=== PATIENT | female | born 1955 | race Two or more races ===

== ENCOUNTER 2019-05-25 06:54 | Emergency (ER) | payer BC, MEDICARE ==
[2019-05-25] MEDS ORDERED: RINGERS SOLUTION,LACTATED 1,000 ML IV ONE (08:52)
--- NOTE | 2019-05-25 09:03 | ER Document Report ---
ED General - General Chief Complaint: High Blood Sugar Stated Complaint: BLOOD SUGAR PROBLEM Time Seen by Provider: 05/25/19 08:40 TRAVEL OUTSIDE OF THE [place] IN LAST 30 DAYS: No - HPI Notes: 63-year-old female known history of diabetes presents with elevated blood glucose. Patient states that 2 days ago she lost all of her diabetes medications and equipment including her Accu-Chek. She feels that her blood sugar is elevated, has had polyuria and polydipsia. No fever, chills or sweats. Denies any current abdominal pain. Moderate intensity, gradual onset, nonradiating. No other modifying factors, no other associated symptoms, no other provocative or palliative factors. - Related Data Allergies/Adverse Reactions: Penicillins Allergy (Verified 07/05/12 20:34) Past Medical History - Social History Smoking Status: Never Smoker Chew tobacco use (# tins/day): No Frequency of alcohol use: Rare Drug Abuse: None Lives with: Spouse/Significant other Family History: Reviewed & Not Pertinent Patient has suicidal ideation: No Patient has homicidal ideation: No - Medical History Notes: Includes type 2 diabetes Neurological Medical History: Reports: Hx Migraine Endocrine Medical History: Reports: Hx Diabetes Mellitus Type 1, Hx Diabetes Mellitus Type 2 GI Medical History: Reports: Hx Irritable Bowel Musculoskeletal Medical History: Reports Hx Fibromyalgia Psychiatric Medical History: Reports: Hx Depression Past Surgical History: Reports: Hx Hysterectomy, Hx Orthopedic Surgery - upper back surgery - Immunizations Immunizations up to date: Yes Hx Diphtheria, Pertussis, Tetanus Vaccination: Yes Review of Systems - Review of Systems Notes: Review of systems as in the history of present illness, otherwise negative x 10 systems. Physical Exam - Vital signs Vitals: Temp Pulse Resp BP Pulse Ox 97.2 F 76 17 137/66 H 96 05/25/19 07:09 05/25/19 07:09 05/25/19 07:09 05/25/19 07:09 05/25/19 07:09 - Notes Notes: General: Well developed . Dry mucosa HEENT: Normocephalic, atraumatic. Pupils equal round reactive to light. No JVD. Chest: No trauma. Respiratory: Good air exchange, normal excursion. Cardiac: Regular rhythm. No murmurs or gallops. Abdomen: Soft, benign. Nondistended. Nontender. Back: No asymmetry or gross abnormality. Motor: Grossly normal power and tone. Neurologic: Alert, nonfocal. Cranial nerves II-12 are intact. Sensation intact. Vascular: Well perfused. Normal peripheral pulses. Skin: No petechiae or purpura. Course - Re-evaluation Re-evalutation: 05/25/19 09:03 [age]-year-old female presents with evidence of clinical dehydration, likely hyperglycemia. Due to medication noncompliance due to loss. Consider underlying DKA, doubt superimposed infection or cardiac etiology. We will proceed with IV fluids, laboratory evaluation, screen for DKA, reassess. 05/25/19 12:08 Patient received IV fluids. Labs were reviewed, moderate hyperglycemia noted, normal bicarb. CBC unremarkable. Patient feels somewhat better, glucose is come down spontaneously to the low 200s. I spoke with the pharmacy and patient apparently is able to go to her pharmacy and indicated to them that she lost it, they are able to call and emergency override in a prescription. They have been given this information, will return if worsening. - Vital Signs Vital signs: Temp Pulse Resp BP Pulse Ox 97.2 F 76 17 137/66 H 96 05/25/19 07:09 05/25/19 07:09 05/25/19 07:09 05/25/19 07:09 05/25/19 07:09 - Laboratory Result Diagrams: 05/25/19 10:10 05/25/19 10:10 Laboratory results interpreted by me: 05/25/19 05/25/19 05/25/19 07:16 10:10 10:10 MCV 98 H Glucose 290 H POC Glucose 307 H Discharge - Discharge Clinical Impression: Hyperglycemia Condition: Good Disposition: HOME, SELF-CARE Instructions: Hyperglycemia ([facility]) Additional Instructions: See your primary care doctor in follow-up over the next 24 to 48 hours
[2019-05-25 10:22] LABS: ABSOLUTE EOSINOPHILS # (AUTO) 0.1 10^3/uL (0.0-0.6); ABSOLUTE LYMPHOCYTES (AUTO) 3.2 10^3/uL (0.5-4.7); ABSOLUTE MONOCYTES (AUTO) 0.5 10^3/uL (0.1-1.4); ABSOLUTE NEUT (AUTO) 4.6 10^3/uL (1.7-8.2); BASOPHILS % (AUTO) 0.5 % (0-2); EOSINOPHILS % (AUTO) 1.1 % (0-6); HEMOGLOBIN 13.5 g/dL (12.0-15.5); LYMPHOCYTES % (AUTO) 37.7 % (13-45); MEAN CORPUSCULAR HEMOGLOBIN 32.9 pg (27.0-33.4); MEAN CORPUSCULAR HGB CONC 33.7 g/dL (32.0-36.0); MEAN CORPUSCULAR VOLUME 98 fl (80-97); MONOCYTES % (AUTO) 5.6 % (3-13); PLATELET COUNT 296 10^3/uL (150-450); RED BLOOD COUNT 4.09 10^6/uL (3.72-5.28); RED CELL DISTRIBUTION WIDTH 13.3 % (11.5-14.0); SEGMENTED NEUTROPHILS % (AUTO) 55.1 % (42-78); TOTAL CELLS COUNTED % (AUTO) 100 %; WHITE BLOOD COUNT 8.4 10^3/uL (4.0-10.5)
[2019-05-25 10:41] LABS: ANION GAP 7 (5-19); BLOOD UREA NITROGEN 15 mg/dL (7-20); CALCIUM 9.2 mg/dL (8.4-10.2); CARBON DIOXIDE 25 mmol/L (22-30); CHLORIDE 105 mmol/L (98-107); GLUCOSE 290 mg/dL (75-110); POTASSIUM 4.6 mmol/L (3.6-5.0)
[2019-05-25] MEDS ORDERED: INSULIN LISPRO 100 UNIT/ML 3 ML VIAL SUBCUT ONE (11:31)
[2019-05-25 12:42] VITALS: BP 144/74
== END 2019-05-25 12:42 | disposition home or self-care (01) ==
LOC: ER 06:54
DX: E11.65 Type 2 diabetes mellitus with hyperglycemia (principal); T50.906A Underdosing of unspecified drugs, medicaments and biological substances, initial encounter; Z91.128 Patient's intentional underdosing of medication regimen for other reason; Z91.14 Patient's other noncompliance with medication regimen; E86.0 Dehydration; Z88.0 Allergy status to penicillin
CPT/HCPCS: 36415; 82962; 85025; 80048; J7120